=== PATIENT | male | born 1950 | race Caucasian/White ===

== ENCOUNTER 2023-04-05 13:32 | Outpatient (CLI) | payer MEDICARE, OTHER | END 2023-04-05 23:59 | disposition critical access hospital (66) | LOC: EMS 13:32 | DX: I46.9 Cardiac arrest, cause unspecified (principal) | CPT/HCPCS: A0425; A0433 ==

== ENCOUNTER 2023-04-05 14:06 | Emergency (ER) | payer MEDICARE, OTHER ==
[2023-04-05] MEDS ORDERED: SODIUM CHLORIDE 0.9% 1,000 ML IV STA ×2 (14:12→16:06)
[2023-04-05 14:23] LABS: BASOPHILS # (AUTO) 0.1 10^3/uL (0.0-0.1); BASOPHILS % (AUTO) 0.6 %; EOSINOPHILS # (AUTO) 0.1 10^3/uL (0.0-0.7); EOSINOPHILS % (AUTO) 0.9 %; HCT - HEMATOCRIT 38.7 % (42.0-52.0); HGB - HEMOGLOBIN 12.4 g/dL (14.0-18.0); LYMPHOCYTES # (AUTO) 5.7 10^3/uL (1.5-3.5); LYMPHOCYTES % (AUTO) 35.1 %; MEAN CORPUSCULAR HEMOGLOBIN 30.5 pg (27.0-31.0); MEAN CORPUSCULAR VOLUME 95.3 fL (80.0-94.0); MEAN PLATELET VOLUME 10.8 fL (7.4-11.4); MONOCYTES % (AUTO) 6.2 %; NEUTROPHILS # (AUTO) 8.3 10^3/uL (1.5-6.6); NEUTROPHILS % (AUTO) 51.4 %; NRBC ABSOLUTE COUNT (AUTO) 0.03 x10^3/uL; NUCLEATED RED BLOOD CELLS AUTO 0.2 /100WBC; PLT - PLATELET COUNT 302 10^3/uL (130-450); RED BLOOD COUNT 4.06 10^6/uL (4.70-6.10); RED CELL DISTRIBUTION WIDTH 12.4 % (12.0-15.0); WHITE BLOOD COUNT 16.2 x10^3/uL (4.8-10.8)
[2023-04-05 14:27] LABS: SLIDE REVIEW? Indicated
[2023-04-05] MEDS: AMIODARONE 150 MG/100 ML 100 ML IV ONE ×2 (14:40→16:42)
[2023-04-05 14:41] LABS: ALBUMIN 2.6 g/dL (3.2-5.5); ALKALINE PHOSPHATASE 73 IU/L (42-121); ALT ALANINE AMINOTRANSFERASE 90 IU/L (10-60); AST ASPARTATE AMINOTRANSFERASE 95 IU/L (10-42); BILIRUBIN,TOTAL 0.3 mg/dL (0.2-1.0); BUN - BLOOD UREA NITROGEN 16 mg/dL (6-20); CALCIUM 7.8 mg/dL (8.5-10.3); CARBON DIOXIDE - CO2 22 mmol/L (21-32); CHLORIDE 106 mmol/L (101-111); CREATININE 1.4 mg/dL (0.6-1.2); ETOH - ETHANOL < 5.0 mg/dL; GFR - MDRD 50 (>89); GLUCOSE 332 mg/dL (70-100); LIPASE 46 U/L (22-51); MUDS CUTOFF CONCENTRATIONS CUTOFF CONC BELOW:; POTASSIUM 4.8 mmol/L (3.5-5.0); SODIUM 138 mmol/L (135-145); TOTAL PROTEIN 5.1 g/dL (6.7-8.2)
[2023-04-05 14:44] LABS: BILIRUBIN,URINE NEGATIVE (NEGATIVE); GLUCOSE, URINE (UA) NEGATIVE (NEGATIVE); KETONES,URINE (UA) TRACE mg/dL (NEGATIVE); LEUKOCYTE ESTERASE, URINE NEGATIVE (NEGATIVE); NITRITE,URINE NEGATIVE (NEGATIVE); OCCULT BLOOD,URINE MODERATE (NEGATIVE); PROTEIN,URINE 30 mg/dL (NEGATIVE); UROBILINOGEN,URINE 0.2 (NORMAL) E.U./dL (NORMAL)
[2023-04-05 14:46] LABS: RBC MORPHOLOGY (MULTIPLE) 1+ ANISOCYTOSIS (NORMAL)
[2023-04-05 14:47] LABS: CLARITY,URINE CLEAR (CLEAR)
[2023-04-05 14:55] LABS: AMPHETAMINE SCREEN,URINE NEGATIVE (NEGATIVE); BARBITURATE SCREEN,UR NEGATIVE (NEGATIVE); BENZODIAZEPINES SCREEN, URINE POSITIVE (NEGATIVE); COCAINE SCREEN URINE NEGATIVE (NEGATIVE); METHADONE SCREEN, URINE NEGATIVE (NEGATIVE); METHAMPHETAMINES SCREEN, URINE NEGATIVE (NEGATIVE); OPIATE SCREEN, URINE NEGATIVE (NEGATIVE); OXYCODONE SCREEN, URINE NEGATIVE (NEGATIVE); PROPOXYPHENE SCREEN, URINE NEGATIVE (NEGATIVE); THC CANNABINOID SCREEN, URINE POSITIVE (NEGATIVE); TRICYCLIC ANTIDEPRESSANT,URINE NEGATIVE (NEGATIVE)
[2023-04-05 14:55] LABS: ABG PH 7.21 (7.35-7.45)
[2023-04-05 14:56] LABS: ABG BASE EXCESS -7.9 mmol/L (-2.0-3.0); ABG HCO3 20.1 mmol/L (22.0-26.0); ABG MODE OF VENTILATION SIMV; ABG OXYGEN SATURATION 92 % (94-98); ABG PCO2 51 mmHg (34-45); ABG PO2 78 mmHg (80-100); ABG RESPIRATORY RATE 20 b/min; ABG TCO2 21.7 MMOL/L (21.0-29.0)
[2023-04-05 14:56] LABS: BACTERIA,URINE Rare /HPF (None Seen); SQUAMOUS EPITHELIAL CELL,UR NONE SEEN (<= Few)
[2023-04-05 14:57] LABS: MUCUS,URINE Moderate Strands
[2023-04-05] MEDS ORDERED: PROPOFOL 1000 MG/100 ML 1,000 MG/100 ML BOTTLE IV STA (15:06)
[2023-04-05] MEDS ORDERED: PROPOFOL 1000 MG/100 ML 1,000 MG/100 ML BOTTLE IV ONE (15:13)
[2023-04-05] MEDS ORDERED: AMIODARONE 150 MG/3 ML VIAL IVP STA ×2 (15:17)
--- NOTE | 2023-04-05 15:26 | ED Physician Documentation ---
PD HPI CPR - Stated complaint Stated Complaint: ROSC - Chief complaint Chief Complaint: Cardiac - History obtained from History obtained from: EMS - Additional information Additional information: The patient is brought to the emergency department after witnessed arrest at home at around 1300. The patient apparently had been feeling well earlier in the day when the noted him to collapse and become unresponsive at home. She started CPR and called EMS, who arrived to find the patient in ventricular fibrillation. They gave a total of 5 rounds of epinephrine at some point during which the patient converted to asystole. The patient did regain circulation at around 35 minutes after the initial arrest. He is brought to the emergency department by the medics intubated and without any spontaneous movement or respiratory effort. The only other medication the patient received besides epinephrine was some atropine because he initially had a heart rate of around 30. At this point in time, the is not here and is not available to offer any other information. PD PAST MEDICAL HISTORY - Allergies Allergies/Adverse Reactions: Allergies Allergy/AdvReac Type Severity Reaction Status Date / Time acetaminophen [From Tylenol] AdvReac Unknown Verified 04/05/23 15:05 PD ED PE NORMAL - General General: Other (Unresponsive patient, intubated.) - HEENT HEENT: Atraumatic, Moist mucous membranes, Other (Pupils fixed and dilated) - Neck Neck: No JVD - Cardiac Cardiac: RRR, No murmur, Strong equal pulses (Carotid arteries and femoral arteries) - Respiratory Respiratory: Other (No respiratory effort; ET tube in place with equal breath sounds bilaterally.) - Abdomen Abdomen: Soft, Non distended - Derm Derm: Other (Patient has mild cyanosis of the neck and face, as well as fingers and toes) - Extremities Extremities: No edema - Neuro Neuro: Other (No signs of neurologic activity whatsoever) Results - Vitals Vitals: Vital Signs - 24 hr 04/05/23 04/05/23 04/05/23 14:05 14:08 14:14 Temperature 36.4 C L Heart Rate 97 126 H 81 Respiratory 35 H 16 Rate Blood Pressure 77/49 L 72/49 L O2 Saturation 97 04/05/23 04/05/23 14:15 14:20 Temperature Heart Rate 74 122 H Respiratory 20 Rate Blood Pressure 148/97 H O2 Saturation 88 L Oxygen O2 Source Mechanical ventilator - EKG (time done) 1431 EKG releavant findings:: EKG personally interpreted by author of this note. Relevant findings are: Rate: Rate (enter#) (90) Rhythm: NSR Mary Esther: LAD Intervals: Normal IN QRS: Normal Ischemia: ST depression (Borderline, anterolateral leads) Compare to prior EKG: Old EKG unavailable Computer interpretation: Disagree with computer (The patient appears to have distinct P waves, not flutter waves.) - Labs Labs: Laboratory Tests 04/05/23 04/05/23 04/05/23 14:11 14:11 14:11 WBC 16.2 H RBC 4.06 L Hgb 12.4 L Hct 38.7 L MCV 95.3 H MCH 30.5 MCHC 32.0 RDW 12.4 Plt Count 302 MPV 10.8 Neut # (Auto) 8.3 H Lymph # (Auto) 5.7 H Zavala # (Auto) 1.0 Eos # (Auto) 0.1 Baso # (Auto) 0.1 Absolute Nucleated RBC 0.03 Nucleated RBC % 0.2 Manual Slide Review Indicated RBC Morph Micro Appear 1+ ANISOCYTOSIS Bld Gas Analysis Time Sample Site ABG pH ABG pCO2 ABG pO2 ABG HCO3 ABG Total CO2 ABG O2 Saturation ABG Base Excess Bruce Test Respiration Rate O2 Delivery Device Vent Mode FiO2 Tidal Volume PEEP Pressure Support Vent Sodium 138 Potassium 4.8 Chloride 106 Carbon Dioxide 22 Anion Gap 10.0 BUN 16 Creatinine 1.4 H Estimated GFR (MDRD) 50 L Glucose 332 H POC Whole Bld Glucose Calcium 7.8 L Total Bilirubin 0.3 AST 95 H ALT 90 H Alkaline Phosphatase 73 Troponin I High Sens 67.9 H* Total Protein 5.1 L Albumin 2.6 L Globulin 2.5 Albumin/Globulin Ratio 1.0 Lipase 46 Urine Color Urine Clarity Urine pH Ur Specific [place] Urine Protein Urine Glucose (UA) Urine Ketones Urine Occult Blood Urine Nitrite Urine Bilirubin Urine Urobilinogen Ur Leukocyte Esterase Urine RBC Urine WBC Ur Squamous Epith Cells Urine Bacteria Urine Mucus Ur Microscopic Review Urine Culture Comments Urine Opiates Screen Ur Oxycodone Screen Urine Methadone Screen Ur Propoxyphene Screen Ur Barbiturates Screen Ur Tricyclics Screen Ur Phencyclidine Scrn Ur Amphetamine Screen U Methamphetamines Scrn U Benzodiazepines Scrn Urine Cocaine Screen U Cannabinoids Screen Ethyl Alcohol < 5.0 SARS-CoV-2 (PCR) 04/05/23 04/05/23 04/05/23 14:11 14:31 14:39 WBC RBC Hgb Hct MCV MCH MCHC RDW Plt Count MPV Neut # (Auto) Lymph # (Auto) Zavala # (Auto) Eos # (Auto) Baso # (Auto) Absolute Nucleated RBC Nucleated RBC % Manual Slide Review RBC Morph Micro Appear Bld Gas Analysis Time Sample Site ABG pH ABG pCO2 ABG pO2 ABG HCO3 ABG Total CO2 ABG O2 Saturation ABG Base Excess Bruce Test Respiration Rate O2 Delivery Device Vent Mode FiO2 Tidal Volume PEEP Pressure Support Vent Sodium Potassium Chloride Carbon Dioxide Anion Gap BUN Creatinine Estimated GFR (MDRD) Glucose POC Whole Bld Glucose 299 H Calcium Total Bilirubin AST ALT Alkaline Phosphatase Troponin I High Sens Total Protein Albumin Globulin Albumin/Globulin Ratio Lipase Urine Color DARK YELLOW Urine Clarity CLEAR Urine pH 7.0 Ur Specific [place] 1.020 Urine Protein 30 H Urine Glucose (UA) NEGATIVE Urine Ketones TRACE Urine Occult Blood MODERATE H Urine Nitrite NEGATIVE Urine Bilirubin NEGATIVE Urine Urobilinogen 0.2 (NORMAL) Ur Leukocyte Esterase NEGATIVE Urine RBC 11-25 H Urine WBC 6-10 H Ur Squamous Epith Cells NONE SEEN Urine Bacteria Rare Urine Mucus Moderate Strands Ur Microscopic Review INDICATED Urine Culture Comments NOT INDICATED Urine Opiates Screen NEGATIVE Ur Oxycodone Screen NEGATIVE Urine Methadone Screen NEGATIVE Ur Propoxyphene Screen NEGATIVE Ur Barbiturates Screen NEGATIVE Ur Tricyclics Screen NEGATIVE Ur Phencyclidine Scrn NEGATIVE Ur Amphetamine Screen NEGATIVE U Methamphetamines Scrn NEGATIVE U Benzodiazepines Scrn POSITIVE H Urine Cocaine Screen NEGATIVE U Cannabinoids Screen POSITIVE H Ethyl Alcohol SARS-CoV-2 (PCR) NOT DETECTED 04/05/23 14:45 WBC RBC Hgb Hct MCV MCH MCHC RDW Plt Count MPV Neut # (Auto) Lymph # (Auto) [place] # (Auto) Eos # (Auto) Baso # (Auto) Absolute Nucleated RBC Nucleated RBC % Manual Slide Review RBC Morph Micro Appear Bld Gas Analysis Time 1445 Sample Site RIGHT BRACHIAL ABG pH 7.21 L ABG pCO2 51 H ABG pO2 78 L ABG HCO3 20.1 L ABG Total CO2 21.7 ABG O2 Saturation 92 L ABG Base Excess -7.9 L Bruce Test NOT APPLICABLE Respiration Rate 20 O2 Delivery Device VENTILATOR Vent Mode SIMV FiO2 100.00 Tidal Volume 500 PEEP 5 Pressure Support Vent 12 Sodium Potassium Chloride Carbon Dioxide Anion Gap BUN Creatinine Estimated GFR (MDRD) Glucose POC Whole Bld Glucose Calcium Total Bilirubin AST ALT Alkaline Phosphatase Troponin I High Sens Total Protein Albumin Globulin Albumin/Globulin Ratio Lipase Urine Color Urine Clarity Urine pH Ur Specific [place] Urine Protein Urine Glucose (UA) Urine Ketones Urine Occult Blood Urine Nitrite Urine Bilirubin Urine Urobilinogen Ur Leukocyte Esterase Urine RBC Urine WBC Ur Squamous Epith Cells Urine Bacteria Urine Mucus Ur Microscopic Review Urine Culture Comments Urine Opiates Screen Ur Oxycodone Screen Urine Methadone Screen Ur Propoxyphene Screen Ur Barbiturates Screen Ur Tricyclics Screen Ur Phencyclidine Scrn Ur Amphetamine Screen U Methamphetamines Scrn U Benzodiazepines Scrn Urine Cocaine Screen U Cannabinoids Screen Ethyl Alcohol SARS-CoV-2 (PCR) - Rads (name of study) Chest x-ray Relevant Findings:: Final report received, See rad report (ET tube, central line, and OG tube visualized. No pneumothorax.) Procedures - Central Line - Major Central Line Preparation: Unable to obtain consent, Ultrasound used, Sterile prep and drape Central line location: Left Subclavian Central line type: Triple lumen Central line aftercare: Chlorhexidine disc placed, Secured, Placement confirmed, No pneumothorax, No complications, Pt tolerated well, Other (Unable to place central line in the right subclavian or IJ, so left subclavian line was placed. Anesthesia did provide ultrasound support to visualize position of the line.) PD Medical Decision Making - ED course Complexity details: reviewed results, re-evaluated patient, considered differential, d/w family ED course: The patient was evaluated immediately upon arrival in the emergency department by myself. He initially had pulses, but quickly descended into PEA after arriving in the emergency department. CPR was reinitiated and a milligram of epinephrine was given. I did feel that since the patient had initially been in V-fib, that he should be started on amiodarone for rhythm stabilization, and so I did ask pharmacist to prepare this. In the meantime, the patient had gotten pulses back after 1 round of epinephrine, but once again, shortly thereafter went back down to PEA. He was given another dose of epinephrine with more CPR and responded with strong pulses at the 2-minute ananda. The patient was hypotensive in the 70s over 40s and I felt that he should be placed on pressors. He had been started on an amiodarone drip and is subclavian central line was placed on the left. By the time the line placement was verified to be good, and the patient's blood pressure had actually come up quite a bit and he was normotensive, so I did hold off on giving Levophed. The patient was now with good color throughout his face, neck, and extremities, and was noted to make some agonal respiratory effort with both his throat and stomach. He was placed on a low-dose of propofol drip so that he could continue to be adequately ventilated. No purposeful movements were observed. The patient was placed on hypothermic protocol. EKG was performed and read by the computer as atrial flutter, though it did actually appear to be sinus rhythm to me. I did speak with the transfer center initially and they stated they may have some room at [place] for the patient. At this point in time, we are awaiting word back from them. I have spoken to the patient's , who reports that the patient has a history of some sort of heart problem when she breathes believes was a rhythm problem, but has no known history of coronary artery disease, diabetes, or hypertension. At this point in time, patient is signed out to Dr. Sparks at change of shift, pending acceptance and transfer. - Critical Care Time(min): 60 Comments: Critical care time was necessary due to high probability of imminent life- threatening decline, secondary to recurrent cardiac arrest, with resultant hemodynamic instability. Time Includes: Direct patient care, Review records, Reassess patient, Document care, Coordinate care, Medical consult, Family consult for tx dec, See progress note Data interpretation: Labs, Pulse ox, CXR, Cardiac output, See progress note Procedures included in critical care time: Ventilator mgmt, See progress note Procedures excluded from critical care time: Central IV, EKG, CPR
--- NOTE | 2023-04-05 15:32 | XRAY Report ---
PROCEDURE: Chest 1 View X-Ray INDICATIONS: ETT placement TECHNIQUE: One view of the chest was acquired. COMPARISON: None. FINDINGS: Surgical changes and devices: Endotracheal tube tip projects over the midthoracic trachea. Left cent ral line tip projects over the innominate confluence. Lungs and pleura: No pleural effusions or pneumothorax. Lungs are clear. Increased pulmonary markin gs. Mediastinum: Mediastinal contours appear normal. Heart size is normal. Bones and chest wall: No suspicious bony lesions. Overlying soft tissues appear unremarkable. IMPRESSION: Endotracheal tube tip projects over the midthoracic trachea. Increased pulmonary markings, likely pulmonary edema. Reviewed by: Blayne Guerra on 04/05/2023 3:31 PM PDT Approved by: Blayne Guerra on 04/05/2023 3:31 PM PDT Station ID: [id number]
[2023-04-05] MEDS ORDERED: cefTRIAXone 2 GM in SODIUM CHLORIDE 0.9% MINIBAG 100 ML IV STA (16:05)
[2023-04-05] MEDS ORDERED: iohexoL-300 100 ML VIAL ONE (16:27)
[2023-04-05] MEDS ORDERED: AMIODARONE 360 MG/200 ML 200 ML IV ONE (16:30)
[2023-04-05 16:48] LABS: BILIRUBIN,URINE NEGATIVE (NEGATIVE); GLUCOSE, URINE (UA) 250 mg/dL (NEGATIVE); KETONES,URINE (UA) NEGATIVE (NEGATIVE); LEUKOCYTE ESTERASE, URINE NEGATIVE (NEGATIVE); NITRITE,URINE NEGATIVE (NEGATIVE); OCCULT BLOOD,URINE MODERATE (NEGATIVE); PROTEIN,URINE >=300 mg/dL (NEGATIVE); UROBILINOGEN,URINE 0.2 (NORMAL) E.U./dL (NORMAL)
[2023-04-05 16:52] LABS: CLARITY,URINE CLOUDY (CLEAR)
[2023-04-05 16:54] VITALS: BP 152/100
[2023-04-05 17:01] LABS: AMORPHOUS SEDIMENT,UR Few /LPF; BACTERIA,URINE Rare /HPF (None Seen); SQUAMOUS EPITHELIAL CELL,UR NONE SEEN (<= Few)
[2023-04-05 17:02] LABS: CASTS, URINE 0-2 Granular Casts /LPF
--- NOTE | 2023-04-05 18:25 | ED Physician Documentation ---
ED Addendum - Addendum Addendum: 04/05/23 18:23 The patient was excepted to [facility] [place] in [place] by [employer] Lyons forms completed. No further events during my shift. Patient was transferred via airlift. This document was made in part using voice recognition software. While efforts are made to proofread this document, sound alike and grammatical errors may occur. Departure - Departure Disposition: 02 Transfer Acute Care Hosp Clinical Impression: Cardiac arrest Condition: Critical Discharge Date/Time: 04/05/23 17:00
== END 2023-04-05 17:00 | disposition short-term general hospital (02) ==
LOC: EDBD → ED 14:06
DX: I46.9 Cardiac arrest, cause unspecified (principal); I49.01 Ventricular fibrillation
CPT/HCPCS: 36415; 36556; 36600; 51702; 71045; 80053; 80306; 81001; 82803; 83690; 84484; 85025; 87040; 87635; 92950; 93005; 94002; 96361; 96374; 96375; 99291; G0480; J0282; 80320; 81003; 87086; 94770